=== PATIENT | female | born 1955 | race Caucasian/White ===

== ENCOUNTER 2016-06-28 17:27 | Emergency (ER) | payer SELFPAY ==
[~2016-06-28] VITALS: Wt 64.0 kg
[2016-06-29] MEDS ORDERED: SOD CHLORIDE 0.9% 1,000 ML IV STA (01:28)
[2016-06-29] MEDS ORDERED: LORAZEPAM 2 MG INJ IV ONE (01:30)
[2016-06-29] MEDS: ONDANSETRON 4 MG INJ IV STA ×2 (01:43→01:51)
[2016-06-29 01:56] LABS: ADD SCAN DIFF NO
[2016-06-29 01:58] LABS: BASOPHILS % 0.7 % (0.0-2.0); EOSINOPHILS % 0.3 % (0.0-7.0); HEMATOCRIT 45.7 % (37.0-47.0); HEMOGLOBIN 15.3 g/dl (12.0-16.0); LYMPHOCYTES # 1.8 10^3/ul (0.8-2.9); LYMPHOCYTES % 31.5 % (15.0-51.0); MEAN CORPUSCULAR HEMOGLOBIN 29.6 pg (29.0-33.0); MEAN CORPUSCULAR HGB CONC 33.5 g/dl (32.0-37.0); MEAN CORPUSCULAR VOLUME 88.4 fl (82.0-101.0); MEAN PLATELET VOLUME 9.9 fl (7.4-10.4); MONOCYTE # 0.6 10^3/ul (0.3-0.9); MONOCYTES % 9.6 % (0.0-11.0); NEUTROPHIL # 3.3 10^3/ul (1.6-7.5); NEUTROPHILS % 57.7 % (39.0-77.0); PLATELET COUNT 285 10^3/UL (140-415); RED BLOOD COUNT 5.17 10^6/ul (4.20-5.40); RED CELL DISTRIBUTION WIDTH 13.1 % (11.5-14.5); WHITE BLOOD COUNT 5.8 10^3/ul (4.8-10.8)
[2016-06-29] MEDS ORDERED: DILTIAZEM 25 MG INJ IV ONE (02:00)
[2016-06-29 02:08] LABS: ALBUMIN 4.5 g/dl (3.3-4.9)
[2016-06-29 02:09] LABS: POTASSIUM 4.1 mmol/L (3.5-5.1)
[2016-06-29 02:11] LABS: ALBUMIN/GLOBULIN RATIO 1.12; BILIRUBIN,INDIRECT 0.4 mg/dl (0-1.1); BILIRUBIN,TOTAL 0.4 mg/dl (0.2-1.3); CREATININE 0.76 mg/dl (0.44-1.00); TOTAL PROTEIN 8.5 g/dl (6.1-8.1)
[2016-06-29 02:12] LABS: CALCIUM 10.1 mg/dl (8.4-10.2)
[2016-06-29 02:23] LABS: TROPONIN-I 0.085 ng/ml (0.00-0.12)
[2016-06-29 02:45] VITALS: BP 102/71; PULSE 70; RESP 20; TEMP 98.2
--- NOTE | 2016-06-29 03:13 | RADRPT ---
PROCEDURE: XR Chest. CLINICAL INDICATION: Clinical presentation of pulmonary infiltrate. TECHNIQUE: Single frontal view of the chest was obtained COMPARISON: None FINDINGS: Cardiomegaly with atherosclerotic calcifications in the thoracic aorta. There is no pleural effusion or pneumothorax. IMPRESSION: No acute disease. RPTAT: [facility] Physician Gopi Date Time Electronically viewed and signed by Boby Villanueva Physician on 06/29/2016 03:12 RS/
--- NOTE | 2016-06-29 05:35 | ERD ---
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 CRUZ WITH NO NEURO HPI 61-year-old woman complains of palpitations 3 days and generalized dizziness although denies loss of consciousness. She denies chest pain and states she stopped using about 2 different "heart medications" about 2-3 months ago. She states she does have a history of "palpitations"'s but is unsure if she has had atrial fibrillation or flutter. Patient denies dysuria, no fevers or chills, no cough, no headache or blurry vision, no vomiting or diarrhea. ROS All systems reviewed and are negative except as per history of present illness. PMhx/Soc Hypertension Medical and Surgical Hx: pt denies Surgical Hx History of Surgery: No Anesthesia Reaction: No Hx Neurological Disorder: No Hx Respiratory Disorders: No Hx Cardiac Disorders: Yes (HLD) Hx Psychiatric Problems: No Hx Miscellaneous Medical Probl: No Hx Alcohol Use: No Hx Substance Use: No Hx Tobacco Use: No Smoking Status: Never smoker FmHx Family History: No diabetes Physical Exam Vitals Vital Signs Date Time Temp Pulse Resp B/P Pulse Ox O2 Delivery O2 Flow Rate FiO2 06/29/16 02:45 98.2 70 20 102/71 100 Room Air 06/29/16 01:22 98.0 115 20 114/78 99 Room Air 06/28/16 17:51 98.1 82 21 106/52 98 Physical Exam GENERAL: Well-developed, well-nourished, well-hydrated, in no apparent distress , looks nontoxic in appearance HEENT: Moist mucous membranes, pink conjunctiva, no cervical spine tenderness or step-off deformities, no goiter, no jaundice or icterus, extraocular movements intact without pain. No submandibular induration, and no pharyngeal erythema NEURO: Alert and oriented 3, cranial nerves II through XII intact bilaterally, pupils equal round reactive to light, no focal deficits or facial asymmetry, sensation intact distally Strength 5/5 in upper and lower extremities bilaterally CARDIAC: Tachycardic and regular, no murmurs rubs or gallops LUNGS: Clear bilaterally no wheezing crackles or stridor ABDOMEN: Soft nontender, no guarding, no rigidity, no rebound, no psoas sign no obturator sign. Normoactive bowel sounds SKIN: Warm and dry to touch, no abrasions, contusions, or hematomas, no lacerations, no ecchymosis, no target lesions, and without ulcers EXTREMITIES: No clubbing cyanosis or edema, calves are bilaterally symmetrical, no Homans sign, no popliteal cord sign. Distal pulses equal and bilateral PSYCH: Normal affect without agitation or irritability Result Diagram: 06/29/1614406/29/165 Results 24 hrs Laboratory Tests Test 06/29/16 01:45 Alanine Aminotransferase (ALT/SGPT) 26IU/L Albumin 4.5g/dl Albumin/Globulin Ratio 1.12 Alkaline Phosphatase 97IU/L Anion Gap 18 Aspartate Amino Transf (AST/SGOT) 31IU/L Basophils # 0.010^3/ul Basophils % 0.7% Blood Urea Nitrogen 25mg/dl Calcium Level 10.1mg/dl Carbon Dioxide Level 25mmol/L Chloride Level 104mmol/L Creatinine 0.76mg/dl Direct Bilirubin 0.00mg/dl Eosinophils # 0.010^3/ul Eosinophils % 0.3% Globulin 4.00g/dl Glucose Level 113mg/dl Hematocrit 45.7% Hemoglobin 15.3g/dl Indirect Bilirubin 0.4mg/dl Lipase 146U/L Lymphocytes # 1.810^3/ul Lymphocytes % 31.5% Mean Corpuscular Hemoglobin 29.6pg Mean Corpuscular Hemoglobin Concent 33.5g/dl Mean Corpuscular Volume 88.4fl Mean Platelet Volume 9.9fl Monocytes # 0.610^3/ul Monocytes % 9.6% Neutrophils # 3.310^3/ul Neutrophils % 57.7% Nucleated Red Blood Cells # 0.010^3/ul Nucleated Red Blood Cells % 0.0/100WBC Platelet Count 27682^3/UL Potassium Level 4.1mmol/L Red Blood Count 5.1710^6/ul Red Cell Distribution Width 13.1% Sodium Level 143mmol/L Total Bilirubin 0.4mg/dl Total Protein 8.5g/dl Troponin I 0.085ng/ml White Blood Count 5.810^3/ul Current Medications Medications (Trade) Dose Ordered Sig/Erik Route PRN Reason Start Time Stop Time Status Last Admin Dose Admin Sodium Chloride (NS) 1,000 ml @ 1,000 mls/hr Q1H STAT IV 06/29/16 01:28 06/29/16 02:27 DC 06/29/16 01:43 Ondansetron HCl (Zofran Inj) 4 mg ONCE STAT IV 06/29/16 01:28 06/29/16 01:29 DC 06/29/16 01:51 Lorazepam (Ativan) 0.5 mg ONCE ONCE IV 06/29/16 01:30 06/29/16 01:42 DC Diltiazem HCl (Cardizem Iv) 20 mg ONCE ONCE IV 06/29/16 02:00 06/29/16 02:01 DC 06/29/16 01:49 Procedures/MDM IV line was established patient was placed on principal cyber engineer rhythm strip revealed a irregular tachycardia at 110 bpm. Patient was afebrile. I administered 1 L normal saline intravenously. Patient also received Zofran 4 mg IV. EKG #1 was performed, read by me revealed an atrial flutter with a variable AV block and rapid ventricular rate at 108 bpm, normal axis, narrow QRS complex, no concerning ST elevations or T-wave inversions. I administered diltiazem 10 mg IV with resolution of her palpitations. EKG #2 was performed, read by me revealed a normal sinus rhythm at 79 bpm, normal axis, with a left ventricular conduction delay and a QRS duration of 106 ms, no concerning ST elevations or depressions noted. One AP view of the chest performed, read by me reveals no acute infiltrates, normal mediastinum, sharp costophrenic and cardiac borders, no air under the diaphragm. Otherwise unremarkable chest x-ray. CBC and electrolytes are normal, liver function tests are normal, troponin was negative. Critical Care: Time: 50 minutes, this was time separate from other procedures. Treatments/Evaluations: Close monitoring and treatment of unstable vital signs, cardiorespiratory, and neurologic status, while maintaining tight balance of fluid, respiratory, and cardiac interventions. Differential diagnoses considered, included but not limited to acute coronary syndrome, pulmonary embolism, aortic dissection, abdominal aortic aneurysm, sepsis, stroke, meningitis, encephalitis, pneumonia, appendicitis, cholecystitis , bowel obstruction, pyelonephritis, nephrolithiasis, cystitis, as well as metabolic, hematologic, and electrolyte abnormalities. As well as abscess, cellulitis, fractures, and dislocations. Patient feels much better at this time, and vital signs are normal, symptoms have improved. I did give strict instructions to return to the ED if symptoms continue or worsen, patient will otherwise follow-up with primary care physician. Patient understood instructions and agreed to plan. Departure Diagnosis: Primary Impression: Atrial flutter Atrial flutter type: typical Qualified Code: I48.3 - Typical atrial flutter Additional Impression: Dizziness Condition: Good Patient Instructions: Atrial Flutter, Dizziness, Unk Cause GOMEZ DAVIS MD Jun 29, 2016 05:35
== END 2016-06-29 03:06 | disposition home or self-care (01) ==
LOC: E/R 17:27
DX: I48.3 Typical atrial flutter (principal); R42 Dizziness and giddiness; I10 Essential (primary) hypertension
CPT/HCPCS: 36415; 71010; 80053; 83690; 84484; 85025; 93005; 96374; 96375; 99291; J2060; J2405; J7030

== ENCOUNTER 2018-04-26 11:03 | Inpatient (IN) | payer MEDICAID ==
[~2018-04-26] VITALS: Ht 165.1 cm; Wt 64.0 kg
[2018-04-26] MEDS ORDERED: ASPIRIN 81 MG TAB PO STA (12:58)
[2018-04-26] MEDS ORDERED: SOD CHLORIDE 0.9% 1,000 ML IV STA (12:58)
[2018-04-26] MEDS ORDERED: DILTIAZEM 25 MG INJ IV ONE (13:00)
--- NOTE | 2018-04-26 13:36 | ERD ---
ER Documentation Chief Complaint Chief Complaint ap x 3 days HPI 63-year-old female presenting with several days of palpitations, chest pain with pressure, shortness of breath, and feeling of bloating in her abdomen. She denies any associated fever, chills, vomiting, diarrhea, constipation. She does state that she has generalized fatigue. She was on medications previously but she is not sure what they were for or the name of her medications. She was under the care of physicians at [facility], but her Medi-Silvio was canceled and she has not received medical follow-up since. ROS All systems reviewed and are negative except as per history of present illness. Medications Home Meds No Active Prescriptions or Reported Meds Allergies Allergies: Uncoded Allergies: PENICILLIN (Allergy, Intermediate, rash, 04/26/18) PMhx/Soc History of Surgery: No Anesthesia Reaction: No Hx Neurological Disorder: No Hx Respiratory Disorders: No Hx Cardiac Disorders: Yes (HLD, a flutter) Hx Psychiatric Problems: No Hx Miscellaneous Medical Probl: No Hx Alcohol Use: No Hx Substance Use: No Hx Tobacco Use: No Smoking Status: Never smoker FmHx Hypertension Family History: No diabetes Physical Exam Vitals Vital Signs Date Temp Pulse Resp B/P (MAP) Pulse Ox O2 O2 Flow FiO2 Time Delivery Rate 04/26/18 98.2 82 20 129/88 97 Room Air 14:32 (102) 04/26/18 98.5 95 18 138/92 99 11:10 (107) Physical Exam Const: No acute distress Head: Atraumatic Eyes: Normal Conjunctiva ENT: Normal External Ears, Nose and Mouth. Neck: Full range of motion. No meningismus. Resp: Clear to auscultation bilaterally Cardio: Irregularly irregular rhythm, tachycardic, no murmurs. 2+ distal pulses in all 4 extremities Abd: Soft, non tender, non distended. Normal bowel sounds Skin: No petechiae or rashes Back: No midline or flank tenderness Ext: No cyanosis, or edema Neur: Awake and alert, normal speech, no facial asymmetry, moving all extremities Psych: Normal Mood and Affect Result Diagram: 04/26/18 1305 04/26/18 1305 Results 24 hrs Laboratory Tests Test 04/26/18 12:55 04/26/18 13:05 Urine Color YELLOW Urine Clarity SLIGHTLY CLOUDY Urine pH 6.0 Urine Specific [place] 1.019 Urine Ketones NEGATIVE mg/dL Urine Nitrite NEGATIVE mg/dL Urine Bilirubin NEGATIVE mg/dL Urine Urobilinogen NEGATIVE mg/dL Urine Leukocyte Esterase NEGATIVE [facility]/ul Urine Microscopic RBC 0 /HPF Urine Microscopic WBC 2 /HPF Urine Mucus FEW /HPF Urine Hemoglobin 1+ mg/dL Urine Glucose NEGATIVE mg/dL Urine Total Protein NEGATIVE mg/dl White Blood Count 5.7 10^3/ul Red Blood Count 4.98 10^6/ul Hemoglobin 14.8 g/dl Hematocrit 43.9 % Mean Corpuscular Volume 88.2 fl Mean Corpuscular Hemoglobin 29.7 pg Mean Corpuscular Hemoglobin Concent 33.7 g/dl Red Cell Distribution Width 13.0 % Platelet Count 234 10^3/UL Mean Platelet Volume 10.5 fl Immature Granulocytes % 0.300 % Neutrophils % 61.5 % Lymphocytes % 26.2 % Monocytes % 10.6 % Eosinophils % 0.5 % Basophils % 0.9 % Nucleated Red Blood Cells % 0.0 /100WBC Immature Granulocytes # 0.020 10^3/ul Neutrophils # 3.5 10^3/ul Lymphocytes # 1.5 10^3/ul Monocytes # 0.6 10^3/ul Eosinophils # 0.0 10^3/ul Basophils # 0.1 10^3/ul Nucleated Red Blood Cells # 0.0 10^3/ul Prothrombin Time 12.8 Sec Prothrombin Time Ratio 1.0 INR International Normalized Ratio 0.95 Activated Partial Thromboplast Time 26.4 Sec Sodium Level 140 mmol/L Potassium Level 4.4 mmol/L Chloride Level 106 mmol/L Carbon Dioxide Level 26 mmol/L Anion Gap 8 Blood Urea Nitrogen 16 mg/dl Creatinine 0.61 mg/dl Est Glomerular Filtrat Rate mL/min > 60 mL/min Glucose Level 109 mg/dl Hemoglobin A1c 5.5 % Calcium Level 9.9 mg/dl Total Bilirubin 0.4 mg/dl Direct Bilirubin 0.00 mg/dl Indirect Bilirubin 0.4 mg/dl Aspartate Amino Transf (AST/SGOT) 36 IU/L Alanine Aminotransferase (ALT/SGPT) 27 IU/L Alkaline Phosphatase 80 IU/L Troponin I 0.035 ng/ml Total Protein 8.2 g/dl Albumin 4.6 g/dl Globulin 3.60 g/dl Albumin/Globulin Ratio 1.27 Lipase 155 U/L Current Medications Medications Dose Sig/Erik Start Time Status Last (Trade) Ordered Route PRN Stop Time Admin Dose Reason Admin Sodium 1,000 ml @ Q1H STAT 04/26/18 DC 04/26/18 Chloride 1,000 mls/hr IV 12:58 13:15 04/26/18 13:57 Aspirin 162 mg ONCE STAT 04/26/18 DC 04/26/18 (Aspirin) PO 12:58 13:15 04/26/18 13:00 Diltiazem 20 mg ONCE ONCE 04/26/18 DC 04/26/18 HCl IV 13:00 13:22 (Cardizem Iv) 04/26/18 13:01 Simethicone 160 mg ONCE ONCE 04/26/18 DC 04/26/18 (Mylicon) PO 14:00 13:46 04/26/18 14:01 Famotidine 20 mg ONCE ONCE 04/26/18 DC 04/26/18 (Pepcid) PO 14:00 13:43 04/26/18 14:01 Procedures/MDM EMERGENT LABS AND DIAGNOSTIC STUDIES: Lab Results above were reviewed and interpreted by me. CBC: no anemia or evidence of infection CMP: No evidence of electrolyte abnormality, renal failure, hypoglycemia, liver failure, or biliary obstruction Troponin within normal limits, not indicative of cardiac ischemia UA: no evidence of infection 12-lead EKG #1 was interpreted by Nakul Pabon MD: Atrial flutter with variable AV block at 90 bpm. Normal axis Normal intervals No acute ST or T wave changes suggestive of acute ischemia or STEMI. 12-lead EKG #2 was interpreted by Nakul Pabon MD: Atrial flutter with variable AV block at 64 bpm. Normal axis Normal intervals No acute ST or T wave changes suggestive of acute ischemia or STEMI. Radiology Results as interpreted by Radiology below were reviewed by Kaye Pabon MD: Chest x-ray: IMPRESSION: No acute disease. Calcified aorta consistent with atherosclerotic disease. Initial Nursing notes reviewed. Previous Medical Records requested via the Electronic Health Record. EMERGENCY DEPARTMENT COURSE / MEDICAL DECISION MAKING: Patient was initially placed on a monitor and treated with IV fluids and IV diltiazem for a flutter with rapid ventricular response. She was also given aspirin. At bedside the patient's heart rate would fluctuate between 100 - 130. EKG did not show any significant ischemic changes. After the diltiazem, her rate did improve but she was still in A. Flutter. Patient does not have outpatient follow-up as she does not have insurance at this time. We were able to get her set up with a emergency Medi-Silvio. As she does not have good follow- up, I feel she needs admission for further workup, stabilization, and initiation of medications to control her a flutter. Accepting Care Team: Current data and ongoing care discussed. Time: Time of admission Primary Provider: Dr. Kenrick Mathews Diagnosis: Primary Impression: Atrial flutter with rapid ventricular response Condition: CHAPIS Lofton MD Apr 26, 2018 13:36
[2018-04-26] MEDS ORDERED: FAMOTIDINE 20 MG TAB PO ONE (14:00)
[2018-04-26] MEDS ORDERED: HYDROCODONE/APAP (5/325) TAB PO PRN (15:30)
[2018-04-26] MEDS ORDERED: ACETAMINOPHEN 325 MG TAB PO PRN ×2 (15:30)
[2018-04-26] MEDS ORDERED: ONDANSETRON 4 MG INJ IV PRN ×2 (15:30)
[2018-04-26] MEDS ORDERED: DOCUSATE SODIUM 100 MG CAP PO PRN (15:30)
[2018-04-26] MEDS ORDERED: MAGNESIUM HYDROXIDE 30ML CUP PO PRN (15:30)
[2018-04-26] MEDS ORDERED: NITROGLYCERIN (SL) 0.4 MG TAB SL PRN (15:30)
[2018-04-26] MEDS ORDERED: NACL 0.9% 3 ML SYG IV SCH (15:30)
--- NOTE | 2018-04-26 15:35 | HP ---
Date/Time of Note Date/Time of Note DATE: 04/26/18 TIME: 15:35 Assessment/Plan VTE Prophylaxis SCD applied (from Nsg): Yes Pharmacological prophylaxis: LMWH Lines/Catheters IV Catheter Type (from Nrsg): Saline Lock Assessment/Plan Assessment/Plan 1. Atrial fibrillation/flutter with RVR - given Cardizem 10mg in ED which helped control rate but still in afib. Will start Cardizem drip and monitor for improvement in HR - Cardiology consultation placed for further recommendations - Will check ECHO to assess for any structural abnormalities - Lovenox full dose on board and will need to transition to NOAC and check with cost for coverage - TSH within normal limits - electrolytes within normal limits 2. Diet - Cardiac 3. Code status - Full code 4. DVT ppx - LMWH 5. Gi ppx - PPI 6. Disposition - Admit to telemetry for treatment of afib with RVR and Cardiology evaluation Result Diagram: 04/26/18 1305 04/26/18 1305 Results 24hrs Laboratory Tests Test 04/26/18 12:55 04/26/18 13:05 Urine Color YELLOW Urine Clarity SLIGHTLY CLOUDY A Urine pH 6.0 Urine Specific [place] 1.019 Urine Ketones NEGATIVE Urine Nitrite NEGATIVE Urine Bilirubin NEGATIVE Urine Urobilinogen NEGATIVE Urine Leukocyte Esterase NEGATIVE Urine Microscopic RBC 0 Urine Microscopic WBC 2 Urine Mucus FEW A Urine Hemoglobin 1+ H Urine Glucose NEGATIVE Urine Total Protein NEGATIVE White Blood Count 5.7 Red Blood Count 4.98 Hemoglobin 14.8 Hematocrit 43.9 Mean Corpuscular Volume 88.2 Mean Corpuscular Hemoglobin 29.7 Mean Corpuscular Hemoglobin Concent 33.7 Red Cell Distribution Width 13.0 Platelet Count 234 Mean Platelet Volume 10.5 H Immature Granulocytes % 0.300 Neutrophils % 61.5 Lymphocytes % 26.2 Monocytes % 10.6 Eosinophils % 0.5 Basophils % 0.9 Nucleated Red Blood Cells % 0.0 Immature Granulocytes # 0.020 Neutrophils # 3.5 Lymphocytes # 1.5 Monocytes # 0.6 Eosinophils # 0.0 Basophils # 0.1 Nucleated Red Blood Cells # 0.0 Prothrombin Time 12.8 Prothrombin Time Ratio 1.0 INR International Normalized Ratio 0.95 Activated Partial Thromboplast Time 26.4 Sodium Level 140 Potassium Level 4.4 Chloride Level 106 Carbon Dioxide Level 26 Anion Gap 8 Blood Urea Nitrogen 16 Creatinine 0.61 Est Glomerular Filtrat Rate mL/min > 60 Glucose Level 109 Calcium Level 9.9 Total Bilirubin 0.4 Direct Bilirubin 0.00 Indirect Bilirubin 0.4 Aspartate Amino Transf (AST/SGOT) 36 Alanine Aminotransferase (ALT/SGPT) 27 Alkaline Phosphatase 80 Troponin I 0.035 Total Protein 8.2 H Albumin 4.6 Globulin 3.60 H Albumin/Globulin Ratio 1.27 Lipase 155 HPI/ROS Admit Date/Time Admit Date/Time 04/26/18 at 1500 Hx of Present Illness 63 yo F with PMH of arrhythmias presented to ED with generalized weakness, shortness of breath, palpitations with sharp left sided chest pain, and a bdominal discomfort. patient sates that over the past 3 days she has been experiencing worsening of these symptoms but has been feeling there on and off over the past few months. She has associated nausea, vomiting, and dizziness. Patient states she has been treated in the past for arrhythmia and was on aspirin 81, metoprolol, and simvastatin but lost her insurance and has been a while since seen her PCP or taken any medications. She was seeing a Operations Label Clerk but forgets his name. Only remembers he was in a tall building in [place]. In the ED, patient was found with atrial arrhythmia and given Cardizem in the ED with improvement in heart rate. Patient denies any LOC, wheezing, constipation, diarrhea, or urinary issues. ROS All 12 systems reviewed and pertinent positives as per HPI. All others negative. Constitutional: fatigue, nausea; No chills Eyes: No discharge ENT: No congestion Respiratory: shortness of breath; No cough, No sputum, No wheezing Cardiovascular: chest pain, lightheadedness, palpitations Gastrointestinal: pain, nausea, vomiting; No constipation, No diarrhea Genitourinary: no complaints Musculoskeletal: no complaints Skin: No laceration, No rash Neurologic: dizziness, headache; No confusion, No focal-weakness, No syncope, No seizure Endocrine: no complaints Lymphatic: no complaints Psychological: nl mood/affect Immunologic: no complaints PMH/Family/Social Past Medical History Medical History: other (arrhythmia) Medications Current Medications Ondansetron HCl (Zofran Inj) 4 mg ER BRIDGE PRN IV NAUSEA AND/OR VOMITING; Start 04/26/18 at 15:30; Stop 04/27/18 at 15:29 Acetaminophen (Tylenol Tab) 650 mg ER BRIDGE PRN PO MILD PAIN(1-3)OR ELEVATED TEMP; Start 04/26/18 at 15:30; Stop 04/27/18 at 15:29 IV Flush (NS 3 ml) 3 ml PER PROTOCOL IV ; Start 04/26/18 at 15:30; Status UNV Ondansetron HCl (Zofran Inj) 4 mg Q6H PRN IV NAUSEA AND/OR VOMITING; Start 04/26/18 at 15:30; Status UNV Nitroglycerin (Nitroglycerin (Sl Tab) 0.4 Mg) 1 tab Q5M PRN SL CHEST PAIN; Start 04/26/18 at 15:30; Status UNV Acetaminophen (Tylenol Tab) 650 mg Q6H PRN PO PAIN LEVEL 1-3 OR FEVER; Start 04/26/18 at 15:30; Status UNV Acetaminophen/ Hydrocodone Bitart ([place] (5/325)) 1 tab Q6H PRN PO PAIN LEVEL 4-6; Start 04/26/18 at 15:30; Status UNV Docusate Sodium (Colace) 100 mg Q12H PRN PO CONSTIPATION; Start 04/26/18 at 15:30; Status UNV Magnesium Hydroxide (Milk Of Mag) 30 ml DAILY PRN PO CONSTIPATION; Start 04/26/18 at 15:30; Status UNV Pantoprazole (Protonix Tab) 40 mg DAILY@06 PO ; Start 04/27/18 at 06:00; Status UNV Enoxaparin Sodium (Lovenox) 65 mg Q12 SC ; Start 04/26/18 at 16:00; Status UNV Uncoded Allergies: PENICILLIN (Allergy, Intermediate, rash, 04/26/18) Past Surgical History Past Surgical Hx: no surgical history Family History Significant Family History: hypertension Social History Alcohol Use: none Smoking Status: Never smoker Drug Use: none Exam/Review of Systems Vital Signs Vitals Vital Signs Date Temp Pulse Resp B/P (MAP) Pulse Ox O2 O2 Flow FiO2 Time Delivery Rate 04/26/18 98.2 82 20 129/88 97 Room Air 14:32 (102) Exam Exam General: Patient is currently lying in bed, no acute distress, fatigued, answering questions appropriately HEENT: Atraumatic, normocephalic. The pupils are equal, round and reactive. Extraocular motor are intact Neck: Supple with full range of motion. No rigidity or meningismus Chest: Nontender Lungs: Clear to auscultation bilaterally no crackles rales or wheezing Heart: Normal S1-S2, irregular rhythm and normal rate. No murmur, S3, or S4 Abdomen: Soft , nontender, nondistended , bowel sounds are present. No guarding no rebound tenderness , No masses or organomegaly. No costovertebral temporal angle mass Extremities: Normal to inspection, no edema no cyanosis Neurologic: Normal mental status, speech normal, cranial nerves II through XII are intact, motor and sensory are intact, strength 5 out of 5 in bilateral upper and lower extremities., No focal neurological deficits noted. Additional Comments No Home Medications PROCEDURE: XR Chest. CLINICAL INDICATION: Chest pain TECHNIQUE: Single frontal view of the chest was obtained. COMPARISON: 06/19/2016 FINDINGS: The heart is within normal limits. The thoracic aorta is calcified. The lungs are clear. There is no pleural effusion or pneumothorax. RPTAT: AA IMPRESSION: No acute disease. Calcified aorta consistent with atherosclerotic disease. .Misbah Li MD, MD Date Time Electronically viewed and signed by .Misbah Li MD, MD on 04/26/2018 14:16 YOVANNY LUJAN MD Apr 26, 2018 15:35
[2018-04-26] MEDS ORDERED: ENOXAPARIN 100 MG/ML SYG SC SCH (16:00)
[2018-04-26 16:58] VITALS: PULSE 80
--- NOTE | 2018-04-26 17:42 | CONS ---
Date/Time of Note Date/Time of Note DATE: 04/26/18 TIME: 17:36 Assessment/Plan Assessment/Plan Hospital Course Paroxysmal atrial flutter: CHADSVASC is 0 unless she has underlying cardiomyopathy so no anticoagulation for now. retirement plan should be atrial flutter ablation once she establishes insurance. In the meantime, rate control is appropriate -start diltiazem 120mg CD -d/c lovenox. If has underlying cardiomyopathy, can start oral anticoagulation Result Diagram: 04/26/18 1305 04/26/18 1305 Results 24hrs Laboratory Tests Test 04/26/18 12:55 04/26/18 13:05 Urine Color YELLOW Urine Clarity SLIGHTLY CLOUDY A Urine pH 6.0 Urine Specific [place] 1.019 Urine Ketones NEGATIVE Urine Nitrite NEGATIVE Urine Bilirubin NEGATIVE Urine Urobilinogen NEGATIVE Urine Leukocyte Esterase NEGATIVE Urine Microscopic RBC 0 Urine Microscopic WBC 2 Urine Mucus FEW A Urine Hemoglobin 1+ H Urine Glucose NEGATIVE Urine Total Protein NEGATIVE White Blood Count 5.7 Red Blood Count 4.98 Hemoglobin 14.8 Hematocrit 43.9 Mean Corpuscular Volume 88.2 Mean Corpuscular Hemoglobin 29.7 Mean Corpuscular Hemoglobin Concent 33.7 Red Cell Distribution Width 13.0 Platelet Count 234 Mean Platelet Volume 10.5 H Immature Granulocytes % 0.300 Neutrophils % 61.5 Lymphocytes % 26.2 Monocytes % 10.6 Eosinophils % 0.5 Basophils % 0.9 Nucleated Red Blood Cells % 0.0 Immature Granulocytes # 0.020 Neutrophils # 3.5 Lymphocytes # 1.5 Monocytes # 0.6 Eosinophils # 0.0 Basophils # 0.1 Nucleated Red Blood Cells # 0.0 Prothrombin Time 12.8 Prothrombin Time Ratio 1.0 INR International Normalized Ratio 0.95 Activated Partial Thromboplast Time 26.4 Sodium Level 140 Potassium Level 4.4 Chloride Level 106 Carbon Dioxide Level 26 Anion Gap 8 Blood Urea Nitrogen 16 Creatinine 0.61 Est Glomerular Filtrat Rate mL/min > 60 Glucose Level 109 Hemoglobin A1c 5.5 Calcium Level 9.9 Total Bilirubin 0.4 Direct Bilirubin 0.00 Indirect Bilirubin 0.4 Aspartate Amino Transf (AST/SGOT) 36 Alanine Aminotransferase (ALT/SGPT) 27 Alkaline Phosphatase 80 Troponin I 0.035 Total Protein 8.2 H Albumin 4.6 Globulin 3.60 H Albumin/Globulin Ratio 1.27 Lipase 155 Thyroid Stimulating Hormone (TSH) 2.180 Consultation Date/Type/Reason Admit Date/Time Date of Consultation: Apr 26, 2018 Type of Consult Cardiology Reason for Consultation Atrial flutter Requesting Provider: YOVANNY LUJAN MD Hx of Present Illness 63 yo F with a h/o paroxysmal atrial flutter who was admitted after presenting with palpitations and found to have atrial flutter with rapid rates at times. Her sister notes that the pt has been feeling very weak and has dyspnea at times. This has been ongoing for a while but specifically the last 3 days. The pt notes that she has had a heart arrhythmia since the early but she does not know the name. She used to take metoprolol and was followed at [facility] but she lost her [employer] and now does not have insurance. Currently no symptoms. No orthopnea, PND, edema. Of note she was seen in the ER 2016 and found to have atrial fluter but has conversion to sinus and was discharged from the ED. per hPI Past Medical History per hPI Medications Current Medications IV Flush (NS 3 ml) 3 ml PER PROTOCOL IV ; Start 04/26/18 at 15:30 Ondansetron HCl (Zofran Inj) 4 mg Q6H PRN IV NAUSEA AND/OR VOMITING; Start 04/26/18 at 15:30 Nitroglycerin (Nitroglycerin (Sl Tab) 0.4 Mg) 1 tab Q5M PRN SL CHEST PAIN; Start 04/26/18 at 15:30 Acetaminophen (Tylenol Tab) 650 mg Q6H PRN PO PAIN LEVEL 1-3 OR FEVER; Start 04/26/18 at 15:30 Acetaminophen/ Hydrocodone Bitart ([place] (5/325)) 1 tab Q6H PRN PO PAIN LEVEL 4-6; Start 04/26/18 at 15:30 Docusate Sodium (Colace) 100 mg Q12H PRN PO CONSTIPATION; Start 04/26/18 at 15:30 Magnesium Hydroxide (Milk Of Mag) 30 ml DAILY PRN PO CONSTIPATION; Start 04/26/18 at 15:30 Pantoprazole (Protonix Tab) 40 mg DAILY@06 PO ; Start 04/27/18 at 06:00 Enoxaparin Sodium (Lovenox) 65 mg Q12H SC ; Start 04/26/18 at 16:00 Influenza Virus Vaccine Quadrival (Fluzone) 0.5 ml ONCE ONCE IM* ; Start 04/27/18 at 12:00; Stop 04/27/18 at 12:01 Allergies: Uncoded Allergies: PENICILLIN (Allergy, Intermediate, rash, 04/26/18) Social History Smoking Status: Never smoker Exam/Review of Systems Vital Signs Vitals Vital Signs Date Temp Pulse Resp B/P (MAP) Pulse Ox O2 O2 Flow FiO2 Time Delivery Rate 04/26/18 80 16:58 04/26/18 27 125/82 99 16:05 (96) 04/26/18 98.2 Room Air 14:32 Exam Constitutional: alert, oriented Psych: no complaints, nl mood/affect Head: normocephalic, atraumatic Neck: supple; No jvd Respiratory: clear to auscultation; No crackles/rales Cardiovascular: No regular rate and rhythm (IRIR), No edema, No systolic murmur Gastrointestinal: soft, non-tender; No distended Neurological: nl mental status, nl speech Medications Medications Current Medications IV Flush (NS 3 ml) 3 ml PER PROTOCOL IV ; Start 04/26/18 at 15:30 Ondansetron HCl (Zofran Inj) 4 mg Q6H PRN IV NAUSEA AND/OR VOMITING; Start 04/26/18 at 15:30 Nitroglycerin (Nitroglycerin (Sl Tab) 0.4 Mg) 1 tab Q5M PRN SL CHEST PAIN; Start 04/26/18 at 15:30 Acetaminophen (Tylenol Tab) 650 mg Q6H PRN PO PAIN LEVEL 1-3 OR FEVER; Start 04/26/18 at 15:30 Acetaminophen/ Hydrocodone Bitart ([place] (5/325)) 1 tab Q6H PRN PO PAIN LEVEL 4-6; Start 04/26/18 at 15:30 Docusate Sodium (Colace) 100 mg Q12H PRN PO CONSTIPATION; Start 04/26/18 at 15:30 Magnesium Hydroxide (Milk Of Mag) 30 ml DAILY PRN PO CONSTIPATION; Start 04/26/18 at 15:30 Pantoprazole (Protonix Tab) 40 mg DAILY@06 PO ; Start 04/27/18 at 06:00 Enoxaparin Sodium (Lovenox) 65 mg Q12H SC ; Start 04/26/18 at 16:00 Influenza Virus Vaccine Quadrival (Fluzone) 0.5 ml ONCE ONCE IM* ; Start 04/27/18 at 12:00; Stop 04/27/18 at 12:01 KIRA ANGEL Apr 26, 2018 17:42
[2018-04-26] MEDS ORDERED: DILTIAZEM (CD) 120 MG CAP PO SCH (18:00)
[2018-04-26] MEDS ORDERED: DILTIAZEM-D5W 125MG/125ML DRIP 125 ML IV SCH (18:30)
[2018-04-26 18:38] VITALS: BP 124/73; PULSE 88
[2018-04-26 20:00] VITALS: BP 130/72; PULSE 86; PULSE 89; RESP 18
[2018-04-26] MEDS ORDERED: METOPROLOL 5 MG INJ IV PRN (21:00)
[2018-04-26] MEDS ORDERED: METOPROLOL 5 MG INJ IV SCH (21:00)
[2018-04-26 23:43] VITALS: BP 128/85; PULSE 87; RESP 20
[2018-04-27] VITALS (10 sets, daily range): BP systolic 96–138; BP diastolic 53–79; PULSE 62–131; RESP 20
[2018-04-27] MEDS: PANTOPRAZOLE (EC) 40 MG TAB PO SCH (05:53)
[2018-04-27] MEDS ORDERED: DILTIAZEM 25 MG INJ IV ONE (08:00)
--- NOTE | 2018-04-27 08:10 | CONS ---
Date/Time of Note Date/Time of Note DATE: 04/27/18 TIME: 08:08 Assessment/Plan Assessment/Plan Hospital Course Paroxysmal atrial flutter: CHADSVASC is 0 unless she has underlying cardiomyopathy so no anticoagulation for now. residential plan should be atrial flutter ablation once she establishes insurance. In the meantime, rate control is appropriate -give IV dilt 10mg now and increase to diltiazem 240 mg CD -hold lovenox. If has underlying cardiomyopathy, can start oral anticoagulation Result Diagram: 04/27/1851104/27/18511 Results 24hrs Laboratory Tests Test 04/26/18 12:55 04/26/18 13:05 04/27/18 05:12 Urine Color YELLOW Urine Clarity SLIGHTLY CLOUDY A Urine pH 6.0 Urine Specific [place] 1.019 Urine Ketones NEGATIVE Urine Nitrite NEGATIVE Urine Bilirubin NEGATIVE Urine Urobilinogen NEGATIVE Urine Leukocyte Esterase NEGATIVE Urine Microscopic RBC 0 Urine Microscopic WBC 2 Urine Mucus FEW A Urine Hemoglobin 1+ H Urine Glucose NEGATIVE Urine Total Protein NEGATIVE White Blood Count 5.7 5.6 Red Blood Count 4.98 4.88 Hemoglobin 14.8 14.5 Hematocrit 43.9 43.8 Mean Corpuscular Volume 88.2 89.8 Mean Corpuscular Hemoglobin 29.7 29.7 Mean Corpuscular 33.7 33.1 Hemoglobin Concent Red Cell Distribution Width 13.0 12.7 Platelet Count 234 238 Mean Platelet Volume 10.5 H 11.1 H Immature Granulocytes % 0.300 0.200 Neutrophils % 61.5 51.1 Lymphocytes % 26.2 36.4 Monocytes % 10.6 10.5 Eosinophils % 0.5 1.1 Basophils % 0.9 0.7 Nucleated Red Blood Cells % 0.0 0.0 Immature Granulocytes # 0.020 0.010 Neutrophils # 3.5 2.8 Lymphocytes # 1.5 2.0 Monocytes # 0.6 0.6 Eosinophils # 0.0 0.1 Basophils # 0.1 0.0 Nucleated Red Blood Cells # 0.0 0.0 Prothrombin Time 12.8 Prothrombin Time Ratio 1.0 INR International 0.95 Normalized Ratio Activated Partial Thromboplast 26.4 Time Sodium Level 140 141 Potassium Level 4.4 4.0 Chloride Level 106 106 Carbon Dioxide Level 26 25 Anion Gap 8 10 Blood Urea Nitrogen 16 13 Creatinine 0.61 0.68 Est Glomerular Filtrat > 60 > 60 Rate mL/min Glucose Level 109 99 Hemoglobin A1c 5.5 Calcium Level 9.9 9.9 Total Bilirubin 0.4 Direct Bilirubin 0.00 Indirect Bilirubin 0.4 Aspartate Amino 36 Transf (AST/SGOT) Alanine 27 Aminotransferase (ALT/SGPT) Alkaline Phosphatase 80 Troponin I 0.035 Total Protein 8.2 H Albumin 4.6 Globulin 3.60 H Albumin/Globulin Ratio 1.27 Lipase 155 Thyroid Stimulating 2.180 Hormone (TSH) Magnesium Level 2.2 Triglycerides Level 155 H Cholesterol Level 268 H LDL Cholesterol, Calculated 209 HDL Cholesterol 28 L Cholesterol/HDL Ratio 9.5 Consultation Date/Type/Reason Admit Date/Time Apr 26, 2018 at 15:22 Initial Consult Date 04/26/18 Type of Consult Cardiology Requesting Provider: YOVANNY LUJNA MD 24 HR Interval Summary Free Text/Dictation HR mostly controlled except for this am. Still with palpitations. LDL 209 Exam/Review of Systems Vital Signs Vitals Vital Signs Date Temp Pulse Resp B/P (MAP) Pulse Ox O2 O2 Flow FiO2 Time Delivery Rate 04/27/18 97.9 98 20 138/73 99 Room Air 06:05 (94) Intake and Output 04/26/18 04/26/18 04/27/18 1515:00 23:00 07:00 IntakeIntake Total 400 ml BalanceBalance 400 ml Exam Constitutional: alert, oriented Head: normocephalic, atraumatic Neck: supple; No jvd Respiratory: clear to auscultation; No crackles/rales Cardiovascular: No regular rate and rhythm (IRIR), No edema Gastrointestinal: soft, non-tender; No distended Neurological: nl mental status, nl speech Medications Medications Current Medications IV Flush (NS 3 ml) 3 ml PER PROTOCOL IV ; Start 04/26/18 at 15:30 Ondansetron HCl (Zofran Inj) 4 mg Q6H PRN IV NAUSEA AND/OR VOMITING; Start 04/26/18 at 15:30 Nitroglycerin (Nitroglycerin (Sl Tab) 0.4 Mg) 1 tab Q5M PRN SL CHEST PAIN; Start 04/26/18 at 15:30 Acetaminophen (Tylenol Tab) 650 mg Q6H PRN PO PAIN LEVEL 1-3 OR FEVER Last administered on 04/26/18at 23:30; Admin Dose 650 MG; Start 04/26/18 at 15:30 Acetaminophen/ Hydrocodone Bitart ([place] (5/325)) 1 tab Q6H PRN PO PAIN LEVEL 4-6; Start 04/26/18 at 15:30 Docusate Sodium (Colace) 100 mg Q12H PRN PO CONSTIPATION; Start 04/26/18 at 15:30 Magnesium Hydroxide (Milk Of Mag) 30 ml DAILY PRN PO CONSTIPATION; Start 04/26/18 at 15:30 Pantoprazole (Protonix Tab) 40 mg DAILY@06 PO Last administered on 04/27/18at 05:53; Admin Dose 40 MG; Start 04/27/18 at 06:00 Influenza Virus Vaccine Quadrival (Fluzone) 0.5 ml ONCE ONCE IM* ; Start 04/27/18 at 12:00; Stop 04/27/18 at 12:01 Metoprolol Tartrate (Lopressor) 2.5 mg Q6 PRN IV ELEVATED BLOOD PRESSURE; Start 04/26/18 at 21:00 Atorvastatin Calcium (Lipitor) 40 mg HS PO ; Start 04/27/18 at 21:00 Diltiazem HCl (Cardizem Cd) 240 mg DAILY PO ; Start 04/27/18 at 09:00 KIRA ANGEL Apr 27, 2018 08:10
--- NOTE | 2018-04-27 08:49 | PN ---
Date/Time of Note Date/Time of Note DATE: 04/27/18 TIME: 08:49 Assessment/Plan VTE Prophylaxis Risk score (from Ns)>0 risk: 2 SCD applied (from Ns): Yes Pharmacological prophylaxis: LMWH Lines/Catheters IV Catheter Type (from [facility]): [place]ine Lock Assessment/Plan Assessment/Plan 1. Atrial fibrillation with RVR - Cardiology on board and appreciate recommendations. Started on PO Cardizem 240mg daily and will monitor HR - Started on Eliquis given findings of hypertrophic CM - ECHO results noted - Discussed with patient need for ablation in future once insurance established 2. Hypertrophic CM 3. Hyperlipidemia - lipid panel results reviewed - Patient started on Lipitor and offered dietary counseling 4. Disposition - Continue monitoring HR and once stable, will d/c home - Starting on Eliquis today and monitor for tolerance. Will need to find out cost since has [employer] emergency insurance at this time Result Diagram: 04/27/18 0512 04/27/18 0512 Results 24hrs Laboratory Tests Test 04/26/18 12:55 04/26/18 13:05 04/27/18 05:12 Urine Color YELLOW Urine Clarity SLIGHTLY CLOUDY A Urine pH 6.0 Urine Specific [place] 1.019 Urine Ketones NEGATIVE Urine Nitrite NEGATIVE Urine Bilirubin NEGATIVE Urine Urobilinogen NEGATIVE Urine Leukocyte Esterase NEGATIVE Urine Microscopic RBC 0 Urine Microscopic WBC 2 Urine Mucus FEW A Urine Hemoglobin 1+ H Urine Glucose NEGATIVE Urine Total Protein NEGATIVE White Blood Count 5.7 5.6 Red Blood Count 4.98 4.88 Hemoglobin 14.8 14.5 Hematocrit 43.9 43.8 Mean Corpuscular Volume 88.2 89.8 Mean Corpuscular Hemoglobin 29.7 29.7 Mean Corpuscular 33.7 33.1 Hemoglobin Concent Red Cell Distribution Width 13.0 12.7 Platelet Count 234 238 Mean Platelet Volume 10.5 H 11.1 H Immature Granulocytes % 0.300 0.200 Neutrophils % 61.5 51.1 Lymphocytes % 26.2 36.4 Monocytes % 10.6 10.5 Eosinophils % 0.5 1.1 Basophils % 0.9 0.7 Nucleated Red Blood Cells % 0.0 0.0 Immature Granulocytes # 0.020 0.010 Neutrophils # 3.5 2.8 Lymphocytes # 1.5 2.0 Monocytes # 0.6 0.6 Eosinophils # 0.0 0.1 Basophils # 0.1 0.0 Nucleated Red Blood Cells # 0.0 0.0 Prothrombin Time 12.8 Prothrombin Time Ratio 1.0 INR International 0.95 Normalized Ratio Activated Partial Thromboplast 26.4 Time Sodium Level 140 141 Potassium Level 4.4 4.0 Chloride Level 106 106 Carbon Dioxide Level 26 25 Anion Gap 8 10 Blood Urea Nitrogen 16 13 Creatinine 0.61 0.68 Est Glomerular Filtrat > 60 > 60 Rate mL/min Glucose Level 109 99 Hemoglobin A1c 5.5 Calcium Level 9.9 9.9 Total Bilirubin 0.4 Direct Bilirubin 0.00 Indirect Bilirubin 0.4 Aspartate Amino 36 Transf (AST/SGOT) Alanine 27 Aminotransferase (ALT/SGPT) Alkaline Phosphatase 80 Troponin I 0.035 Total Protein 8.2 H Albumin 4.6 Globulin 3.60 H Albumin/Globulin Ratio 1.27 Lipase 155 Thyroid Stimulating 2.180 Hormone (TSH) Magnesium Level 2.2 Triglycerides Level 155 H Cholesterol Level 268 H LDL Cholesterol, Calculated 209 HDL Cholesterol 28 L Cholesterol/HDL Ratio 9.5 Subjective 24 Hr Interval Summary Free Text/Dictation Patient doing well and states shes feeling better. She was given a handout about atrial fibrillation and states she was experiencing all the symptoms on the paper. Denies any chest pain, palpitations, shortness of breath, or abdominal discomfort. Exam/Review of Systems Vital Signs Vitals Vital Signs Date Temp Pulse Resp B/P (MAP) Pulse Ox O2 O2 Flow FiO2 Time Delivery Rate 04/27/18 131 08:28 04/27/18 99.5 20 115/79 98 Room Air 08:09 (91) Intake and Output 04/26/18 04/26/18 04/27/18 1515:00 23:00 07:00 IntakeIntake Total 400 ml BalanceBalance 400 ml Exam General: Patient is lying in bed, no acute distress. pleasant and answering questions appropriately Neck: Supple Chest: Nontender Lungs: Clear to auscultation bilaterally no crackles rales or wheezing Heart: Normal S1-S2, irregular rhythm and normal rate. No murmur, S3, or S4 Abdomen: Soft , nontender, nondistended , bowel sounds are present. No guarding no rebound tenderness Extremities: Normal to inspection, no edema no cyanosis Medications Medications Current Medications IV Flush (NS 3 ml) 3 ml PER PROTOCOL IV ; Start 04/26/18 at 15:30 Ondansetron HCl (Zofran Inj) 4 mg Q6H PRN IV NAUSEA AND/OR VOMITING; Start 04/26/18 at 15:30 Nitroglycerin (Nitroglycerin (Sl Tab) 0.4 Mg) 1 tab Q5M PRN SL CHEST PAIN; Start 04/26/18 at 15:30 Acetaminophen (Tylenol Tab) 650 mg Q6H PRN PO PAIN LEVEL 1-3 OR FEVER Last administered on 04/26/18at 23:30; Admin Dose 650 MG; Start 04/26/18 at 15:30 Acetaminophen/ Hydrocodone Bitart ([place] (5/325)) 1 tab Q6H PRN PO PAIN LEVEL 4-6; Start 04/26/18 at 15:30 Docusate Sodium (Colace) 100 mg Q12H PRN PO CONSTIPATION; Start 04/26/18 at 15:30 Magnesium Hydroxide (Milk Of Mag) 30 ml DAILY PRN PO CONSTIPATION; Start 04/26/18 at 15:30 Pantoprazole (Protonix Tab) 40 mg DAILY@06 PO Last administered on 04/27/18at 05:53; Admin Dose 40 MG; Start 04/27/18 at 06:00 Influenza Virus Vaccine Quadrival (Fluzone) 0.5 ml ONCE ONCE IM* ; Start 04/27/18 at 12:00; Stop 04/27/18 at 12:01 Metoprolol Tartrate (Lopressor) 2.5 mg Q6 PRN IV ELEVATED BLOOD PRESSURE; Start 04/26/18 at 21:00 Atorvastatin Calcium (Lipitor) 40 mg HS PO ; Start 04/27/18 at 21:00 Diltiazem HCl (Cardizem Cd) 240 mg DAILY PO ; Start 04/27/18 at 09:00 YOVANNY LUJAN MD Apr 27, 2018 08:49
[2018-04-27] MEDS ORDERED: DILTIAZEM (CD) 120 MG CAP PO SCH (09:00)
--- NOTE | 2018-04-27 09:47 | RADRPT ---
Echocardiogram Report Patient Name: GLORIA ARSHAD Gender: Female Date: 1955 Study Date: 27-Apr-2018 College Counselor: Kalyn Boswell RDCS Location: 619-A Ref. Physician: YOVANNY LUJAN Quality: Adequate Procedures: Transthoracic echocardiogram with complete 2D, M-Mode, and doppler examination. Indications: Atrial Fibrillation. 2D/M Mode Doppler Measurement Value Normal Ranges Measurement Value Normal Ranges LVIDd 2D 2.9 3.5 - 5.6 cm AV Peak [place] 1.5 m/sec LVIDs 2D 1.8 2.1 - 4.1 cm AV Peak PG 8.0 mmHg FS 2D 35.7 % LVOT Peak [place] 0.7 m/sec LVPWd 2D 1.2 0.6 - 1.1 cm LVOT Peak PG 2.0 mmHg IVSd 2D 1.4 0.6 - 1.1 cm IVS/LVPW 2D 1.1 AoR Diam 2D 2.6 2.0 - 3.7 cm LA/Ao 2D 1 0 - 1 EDV 2D 23.4 cm3 ESV 2D 6.2 cm3 LA Dimen 2D 3.7 2.3 - 4.0 cm Findings Left Ventricle: Normal left ventricular systolic function. Normal left ventricular cavity size. Hypertrophic cardiomyopathy with severe asymmetric septal hypertrophy with septum measuring 2.0 cm. No LVOT obstruction. Ejection fraction is visually estimated at 60 %. Right Ventricle: Normal right ventricular size. Normal right ventricular systolic function. Left Atrium: There is severe enlargement of left atrium. Right Atrium: There is severe enlargement of right atrium. Mitral Valve: Normal appearance of the mitral valve. Mild mitral valve regurgitation. Aortic Valve: Normal appearance of the aortic valve. No aortic regurgitation. Tricuspid Valve: Normal appearance of the tricuspid valve. Unable to obtain RVSP due to minimal presence of tricuspid regurgitation. No evidence of tricuspid regurgitation. Pericardium: Normal pericardium with no significant pericardial effusion. Aorta: Normal aortic root. IVC: Normal size and normal respiratory collapse consistent with normal right atrial pressure. Conclusions Normal left ventricular systolic function. Normal left ventricular cavity size. EF 60%. Hypertrophic cardiomyopathy with severe asymmetric septal hypertrophy with septum measuring 2.0 cm. No LVOT obstruction. No significant valvular stenosis or regurgitation seen. There is severe enlargement of left atrium. There is severe enlargement of right atrium. Unable to obtain RVSP due to minimal presence of tricuspid regurgitation. Normal size and normal respiratory collapse consistent with normal right atrial pressure. Electronically Signed By: Osmin Fortune 27-Apr-2018 09:46:53 -0800 Patient Name: GLORIA ARSHAD Study Date: 27-Apr-[id number]
[2018-04-27] MEDS: DILTIAZEM (CD) 240 MG CAP PO SCH (09:50)
[2018-04-27] MEDS ORDERED: APIXABAN 5 MG TABLET PO SCH (14:30)
[2018-04-27] MEDS: APIXABAN 5 MG TABLET PO SCH ×2 (15:56→21:35)
[2018-04-27] MEDS: ATORVASTATIN 40 MG TAB PO SCH (21:36)
[2018-04-28] VITALS (11 sets, daily range): BP systolic 103–129; BP diastolic 52–76; PULSE 39–106; RESP 20
[2018-04-28] MEDS: PANTOPRAZOLE (EC) 40 MG TAB PO SCH (05:48)
[2018-04-28] MEDS: APIXABAN 5 MG TABLET PO SCH ×2 (09:10→20:42)
[2018-04-28] MEDS: DILTIAZEM (CD) 240 MG CAP PO SCH (09:10)
--- NOTE | 2018-04-28 12:16 | CONS ---
Date/Time of Note Date/Time of Note DATE: 04/28/18 TIME: 12:13 Assessment/Plan Assessment/Plan Hospital Course Paroxysmal atrial flutter: CHADSVASC is difficult to calculate as she does not have CHF but with her hypertrophic cardiomyopathy may be at higher risk so she then gets one point for that and one for female so CHADSVASC is now 2 and she was started on Eliquis. 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 In the meantime, rate control is appropriate and rates are now controlled. Hypertrophic cardiomyopathy: Asymmetric severe septal hypertrophy up to 2.0 cm. No obstruction. Pt needs outpt cardiology f/u. Also counseled to have her children obtain echos as well. She understands -ok for d/c home from my perspective -diltiazem 240 mg CD -Eliquis 5mg BID -social work eval for insurance establishment -outpt cardiology f/u Result Diagram: 04/28/18 0508 04/28/18 0508 Results 24hrs Laboratory Tests Test 04/28/18 05:08 White Blood Count 6.4 Red Blood Count 4.72 Hemoglobin 14.1 Hematocrit 41.8 Mean Corpuscular Volume 88.6 Mean Corpuscular Hemoglobin 29.9 Mean Corpuscular Hemoglobin Concent 33.7 Red Cell Distribution Width 12.9 Platelet Count 256 Mean Platelet Volume 11.0 H Immature Granulocytes % 0.200 Neutrophils % 60.6 Lymphocytes % 26.4 Monocytes % 10.9 Eosinophils % 1.1 Basophils % 0.8 Nucleated Red Blood Cells % 0.0 Immature Granulocytes # 0.010 Neutrophils # 3.9 Lymphocytes # 1.7 Monocytes # 0.7 Eosinophils # 0.1 Basophils # 0.1 Nucleated Red Blood Cells # 0.0 Sodium Level 140 Potassium Level 3.9 Chloride Level 103 Carbon Dioxide Level 28 Anion Gap 9 Blood Urea Nitrogen 21 H Creatinine 0.82 Glucose Level 101 Calcium Level 9.9 Phosphorus Level 4.6 Magnesium Level 2.1 Albumin 4.4 Consultation Date/Type/Reason Admit Date/Time Apr 26, 2018 at 15:22 Initial Consult Date 04/26/18 Type of Consult Cardiology Requesting Provider: YOVANNY LUJAN MD 24 HR Interval Summary Free Text/Dictation HR controlled. No chest pain or SOB. No palpitations. Exam/Review of Systems Vital Signs Vitals Vital Signs Date Temp Pulse Resp B/P (MAP) Pulse Ox O2 O2 Flow FiO2 Time Delivery Rate 04/28/18 98.1 71 20 129/76 96 Room Air 11:02 (93) Intake and Output 04/27/18 04/27/18 04/28/18 1515:00 23:00 07:00 IntakeIntake Total 920 ml 400 ml BalanceBalance 920 ml 400 ml Exam Constitutional: alert, oriented Psych: no complaints, nl mood/affect Head: normocephalic, atraumatic Neck: supple; No jvd Respiratory: clear to auscultation; No crackles/rales Cardiovascular: No regular rate and rhythm, No edema, No systolic murmur Gastrointestinal: soft, non-tender; No distended Neurological: nl mental status, nl speech Medications Medications Current Medications IV Flush (NS 3 ml) 3 ml PER PROTOCOL IV ; Start 04/26/18 at 15:30 Ondansetron HCl (Zofran Inj) 4 mg Q6H PRN IV NAUSEA AND/OR VOMITING; Start 04/26/18 at 15:30 Nitroglycerin (Nitroglycerin (Sl Tab) 0.4 Mg) 1 tab Q5M PRN SL CHEST PAIN; Start 04/26/18 at 15:30 Acetaminophen (Tylenol Tab) 650 mg Q6H PRN PO PAIN LEVEL 1-3 OR FEVER Last administered on 04/26/18at 23:30; Admin Dose 650 MG; Start 04/26/18 at 15:30 Acetaminophen/ Hydrocodone Bitart ([place] (5/325)) 1 tab Q6H PRN PO PAIN LEVEL 4-6; Start 04/26/18 at 15:30 Docusate Sodium (Colace) 100 mg Q12H PRN PO CONSTIPATION; Start 04/26/18 at 15:30 Magnesium Hydroxide (Milk Of Mag) 30 ml DAILY PRN PO CONSTIPATION; Start 04/26/18 at 15:30 Pantoprazole (Protonix Tab) 40 mg DAILY@06 PO Last administered on 04/28/18at 05:48; Admin Dose 40 MG; Start 04/27/18 at 06:00 Metoprolol Tartrate (Lopressor) 2.5 mg Q6 PRN IV ELEVATED BLOOD PRESSURE; Start 04/26/18 at 21:00 Atorvastatin Calcium (Lipitor) 40 mg HS PO Last administered on 04/27/18at 21:36; Admin Dose 40 MG; Start 04/27/18 at 21:00 Diltiazem HCl (Cardizem Cd) 240 mg DAILY PO Last administered on 04/28/18 09 :10; Admin Dose 240 MG; Start 04/27/18 at 09:00 Apixaban (Eliquis) 5 mg BID PO Last administered on 04/28/18 09:10; Admin Dose 5 MG; Start 04/27/18 at 15:00 KIRA ANGEL Apr 28, 2018 12:16
--- NOTE | 2018-04-28 18:40 | PN ---
Date/Time of Note Date/Time of Note DATE: 04/28/18 TIME: 18:40 Objective Vitals Vital Signs Date Temp Pulse Resp B/P (MAP) Pulse Ox O2 O2 Flow FiO2 Time Delivery Rate 04/28/18 67 16:41 04/28/18 97.9 20 103/56 97 Room Air 15:09 (72) Intake and Output 04/27/18 04/27/18 04/28/18 1515:00 23:00 07:00 IntakeIntake Total 920 ml 400 ml BalanceBalance 920 ml 400 ml Results Result Diagram: 04/28/18 0508 04/28/18 0508 Medications Medications Current Medications IV Flush (NS 3 ml) 3 ml PER PROTOCOL IV ; Start 04/26/18 at 15:30 Ondansetron HCl (Zofran Inj) 4 mg Q6H PRN IV NAUSEA AND/OR VOMITING; Start 04/26/18 at 15:30 Nitroglycerin (Nitroglycerin (Sl Tab) 0.4 Mg) 1 tab Q5M PRN SL CHEST PAIN; St art 04/26/18 at 15:30 Acetaminophen (Tylenol Tab) 650 mg Q6H PRN PO PAIN LEVEL 1-3 OR FEVER Last adm inistered on 04/26/18at 23:30; Admin Dose 650 MG; Start 04/26/18 at 15:30 Acetaminophen/ Hydrocodone Bitart ([place] (5/325)) 1 tab Q6H PRN PO PAIN LEVEL 4-6; Start 04/26/18 at 15:30 Docusate Sodium (Colace) 100 mg Q12H PRN PO CONSTIPATION; Start 04/26/18 at 15:30 Magnesium Hydroxide (Milk Of Mag) 30 ml DAILY PRN PO CONSTIPATION; Start 04/26/18 at 15:30 Pantoprazole (Protonix Tab) 40 mg DAILY@06 PO Last administered on 04/28/18at 05:48; Admin Dose 40 MG; Start 04/27/18 at 06:00 Metoprolol Tartrate (Lopressor) 2.5 mg Q6 PRN IV ELEVATED BLOOD PRESSURE; Start 04/26/18 at 21:00 Atorvastatin Calcium (Lipitor) 40 mg HS PO Last administered on 04/27/18at 21:36; Admin Dose 40 MG; Start 04/27/18 at 21:00 Diltiazem HCl (Cardizem Cd) 240 mg DAILY PO Last administered on 04/28/18at 09:10; Admin Dose 240 MG; Start 04/27/18 at 09:00 Apixaban (Eliquis) 5 mg BID PO Last administered on 04/28/18at 09:10; Admin Dose 5 MG; Start 04/27/18 at 15:00 VTE Prophylaxis Risk score (from Ns)>0 risk: 2 SCD applied (from Ns): Yes Lines/Catheters IV Catheter Type: Almanza in Place: No Assessment/Plan Hospital Course Subjective Patient feeling well, no palpitations Objective Physical exam General: Patient is laying in bed and answers questions appropriately Mentation: Patient is alert and oriented 4, Head: Normocephalic atraumatic Eyes: EOMI, pupils reactive to light Neck: Supple, nontender, midline Respiratory: Clear to auscultation bilaterally Cardiovascular: regular rate, no obvious murmurs Gastrointestinal: non-tender to palpation, bowel sounds heard. Neurological: Moves all extremities spontaneously Skin: No new skin lesions Assessment/Plan 1. Atrial fibrillation with RVR - Cardiology on board and appreciate recommendations. Started on PO Cardizem 240mg daily and will monitor HR - Started on Eliquis given findings of hypertrophic CM - ECHO results noted - Discussed with patient need for ablation in future once insurance established 2. Hypertrophic CM 3. Hyperlipidemia - lipid panel results reviewed - Patient started on Lipitor and offered dietary counseling 4. Disposition -due to emergency medi-radha status, patient likely unable to afford eliquis, wa rfarin is also an issue due to inability to go to warfarin clinics, will attempt to resolve with CM before DC GOMEZ MCMANUS Apr 28, 2018 18:40
[2018-04-28] MEDS: ATORVASTATIN 40 MG TAB PO SCH (20:42)
[2018-04-29] VITALS (11 sets, daily range): BP systolic 104–129; BP diastolic 56–85; PULSE 56–72; RESP 18–20
[2018-04-29] MEDS: PANTOPRAZOLE (EC) 40 MG TAB PO SCH (06:22)
[2018-04-29] MEDS: APIXABAN 5 MG TABLET PO SCH ×2 (09:07→21:01)
[2018-04-29] MEDS: DILTIAZEM (CD) 240 MG CAP PO SCH (09:07)
--- NOTE | 2018-04-29 14:21 | PN ---
Date/Time of Note Date/Time of Note DATE: 04/29/18 TIME: 14:18 Objective Vitals Vital Signs Date Temp Pulse Resp B/P (MAP) Pulse Ox O2 O2 Flow FiO2 Time Delivery Rate 04/29/18 69 12:53 04/29/18 98.0 18 104/59 96 11:41 (74) 04/29/18 Room Air 05:00 Intake and Output 04/28/18 04/28/18 04/29/18 1515:00 23:00 07:00 IntakeIntake Total 125 ml 1050 ml 400 ml OutputOutput Total 1 ml BalanceBalance 124 ml 1050 ml 400 ml Results Result Diagram: 04/28/18 0508 04/28/18 0508 Medications Medications Current Medications IV Flush (NS 3 ml) 3 ml PER PROTOCOL IV ; Start 04/26/18 at 15:30 Ondansetron HCl (Zofran Inj) 4 mg Q6H PRN IV NAUSEA AND/OR VOMITING; Start 04/26/18 at 15:30 Nitroglycerin (Nitroglycerin (Sl Tab) 0.4 Mg) 1 tab Q5M PRN SL CHEST PAIN; Start 04/26/18 at 15:30 Acetaminophen (Tylenol Tab) 650 mg Q6H PRN PO PAIN LEVEL 1-3 OR FEVER Last administered on 04/26/18at 23:30; Admin Dose 650 MG; Start 04/26/18 at 15:30 Acetaminophen/ Hydrocodone Bitart ([place] (5/325)) 1 tab Q6H PRN PO PAIN LEVEL 4-6; Start 04/26/18 at 15:30 Docusate Sodium (Colace) 100 mg Q12H PRN PO CONSTIPATION; Start 04/26/18 at 15:30 Magnesium Hydroxide (Milk Of Mag) 30 ml DAILY PRN PO CONSTIPATION; Start at 15:30 Pantoprazole (Protonix Tab) 40 mg DAILY@06 PO Last administered on 04/29/18at 06:22; Admin Dose 40 MG; Start 04/27/18 at 06:00 Metoprolol Tartrate (Lopressor) 2.5 mg Q6 PRN IV ELEVATED BLOOD PRESSURE; Start 04/26/18 at 21:00 Atorvastatin Calcium (Lipitor) 40 mg HS PO Last administered on 04/28/18at 20:42; Admin Dose 40 MG; Start 04/27/18 at 21:00 Diltiazem HCl (Cardizem Cd) 240 mg DAILY PO Last administered on 04/29/18at 09:07; Admin Dose 240 MG; Start 04/27/18 at 09:00 Apixaban (Eliquis) 5 mg BID PO Last administered on 04/29/18at 09:07; Admin Dose 5 MG; Start 04/27/18 at 15:00 VTE Prophylaxis Risk score (from Ns)>0 risk: 2 SCD applied (from Ns): Yes Lines/Catheters IV Catheter Type: Almanza in Place: No Assessment/Plan Hospital Course Subjective Patient feeling well, no palpitations, no upper abdominal pain, some suprapubic pain with palpation Objective Physical exam General: Patient is laying in bed and answers questions appropriately Mentation: Patient is alert and oriented 4, Head: Normocephalic atraumatic Eyes: EOMI, pupils reactive to light Neck: Supple, nontender, midline Respiratory: Clear to auscultation bilaterally Cardiovascular: regular rate, no obvious murmurs Gastrointestinal: non-tender to palpation in the upper quadrants, some mild suprapubic pain, bowel sounds heard. Neurological: Moves all extremities spontaneously Skin: No new skin lesions Assessment/Plan suprapubic pain -UA ordered -us did not show anything acute abdominal fullness -spoke with recreation therapy aides teacher, patient only had a sensation of fullness, not pain, only when the palpitations originally happened, not currently, resolved after day 1. -US abdomen showing gallstones, explained to patient this is not an emergency, but she will need to get it removed eventually in the outpatient setting. 1. Atrial fibrillation with RVR - Cardiology on board and appreciate recommendations. Started on PO Cardizem 240mg daily and will monitor HR - Started on Eliquis given findings of hypertrophic CM - ECHO results noted - Discussed with patient need for ablation in future once insurance established 2. Hypertrophic CM 3. Hyperlipidemia - lipid panel results reviewed - Patient started on Lipitor and offered dietary counseling 4. Disposition -due to emergency medi-radha status, patient likely unable to afford eliquis, warfarin is also an issue due to inability to go to warfarin clinics, will attempt to resolve with CM before DC GOMEZ MCMANUS Apr 29, 2018 14:21
--- NOTE | 2018-04-29 16:12 | CONS ---
Date/Time of Note Date/Time of Note DATE: 04/29/18 TIME: 16:10 Assessment/Plan Assessment/Plan Hospital Course Paroxysmal atrial flutter: Back in sinus. senior care plan should be atrial flutter ablation. CHADSVASC is difficult to calculate as she does not have CHF or low EF and her hypertrophic cardiomyopathy probably does not count. With financial considerations, would err on the side of no anticoagulation at this ti me Hypertrophic cardiomyopathy: Asymmetric severe septal hypertrophy up to 2.0 cm. No obstruction. Pt needs outpt cardiology f/u. Also counseled to have her children obtain echos as well. She understands -ok for d/c home from my perspective -diltiazem 240 mg CD -no anticoagulation for now -outpt cardiology f/u Result Diagram: 04/28/18 0508 04/28/18 0508 Consultation Date/Type/Reason Admit Date/Time Apr 28, 2018 at 16:51 Initial Consult Date 04/26/18 Type of Consult Cardiology Requesting Provider: YOVANNY LUJAN MD 24 HR Interval Summary Free Text/Dictation Back in sinus.No complaints. Asking about discharge Exam/Review of Systems Vital Signs Vitals Vital Signs Date Temp Pulse Resp B/P (MAP) Pulse Ox O2 O2 Flow FiO2 Time Delivery Rate 04/29/18 98.3 66 18 129/85 99 15:38 (100) 04/29/18 Room Air 05:00 Intake and Output 04/28/18 04/28/18 04/29/18 1515:00 23:00 07:00 IntakeIntake Total 125 ml 1050 ml 400 ml OutputOutput Total 1 ml BalanceBalance 124 ml 1050 ml 400 ml Exam Constitutional: alert, oriented Psych: no complaints, nl mood/affect Head: normocephalic, atraumatic Neck: supple; No jvd Respiratory: clear to auscultation; No crackles/rales Cardiovascular: regular rate and rhythm, systolic murmur (2/6 KALLI); No edema Gastrointestinal: soft, non-tender Neurological: nl mental status, nl speech Medications Medications Current Medications IV Flush (NS 3 ml) 3 ml PER PROTOCOL IV ; Start 04/26/18 at 15:30 Ondansetron HCl (Zofran Inj) 4 mg Q6H PRN IV NAUSEA AND/OR VOMITING; Start 04/26/18 at 15:30 Nitroglycerin (Nitroglycerin (Sl Tab) 0.4 Mg) 1 tab Q5M PRN SL CHEST PAIN; Start 04/26/18 at 15:30 Acetaminophen (Tylenol Tab) 650 mg Q6H PRN PO PAIN LEVEL 1-3 OR FEVER Last administered on 04/26/18at 23:30; Admin Dose 650 MG; Start 04/26/18 at 15:30 Acetaminophen/ Hydrocodone Bitart ([place] (5/325)) 1 tab Q6H PRN PO PAIN LEVEL 4-6; Start 04/26/18 at 15:30 Docusate Sodium (Colace) 100 mg Q12H PRN PO CONSTIPATION; Start 04/26/18 at 15:30 Magnesium Hydroxide (Milk Of Mag) 30 ml DAILY PRN PO CONSTIPATION; Start 04/26/18 at 15:30 Pantoprazole (Protonix Tab) 40 mg DAILY@06 PO Last administered on 04/29/18at 06:22; Admin Dose 40 MG; Start 04/27/18 at 06:00 Metoprolol Tartrate (Lopressor) 2.5 mg Q6 PRN IV ELEVATED BLOOD PRESSURE; Start 04/26/18 at 21:00 Atorvastatin Calcium (Lipitor) 40 mg HS PO Last administered on 04/28/18at 20:42; Admin Dose 40 MG; Start 04/27/18 at 21:00 Diltiazem HCl (Cardizem Cd) 240 mg DAILY PO Last administered on 04/29/18at 09:07; Admin Dose 240 MG; Start 04/27/18 at 09:00 Apixaban (Eliquis) 5 mg BID PO Last administered on 04/29/18at 09:07; Admin Dose 5 MG; Start 04/27/18 at 15:00 KIRA ANGEL Apr 29, 2018 16:12
[2018-04-29] MEDS: ATORVASTATIN 40 MG TAB PO SCH (21:01)
[2018-04-30] VITALS (9 sets, daily range): BP systolic 104–147; BP diastolic 61–79; PULSE 53–85; RESP 18–20
[2018-04-30] MEDS: PANTOPRAZOLE (EC) 40 MG TAB PO SCH (06:42)
[2018-04-30] MEDS: APIXABAN 5 MG TABLET PO SCH (08:10)
--- NOTE | 2018-04-30 09:44 | CONS ---
Date/Time of Note Date/Time of Note DATE: 04/30/18 TIME: 09:43 Assessment/Plan Assessment/Plan Hospital Course Paroxysmal atrial flutter: Back in sinus. penitentiary plan should be atrial flutter ablation. CHADSVASC is difficult to calculate as she does not have CHF or low EF and her hypertrophic cardiomyopathy probably does not count. With financial considerations, would err on the side of no anticoagulation at this ti ar Hypertrophic cardiomyopathy: Asymmetric severe septal hypertrophy up to 2.0 cm. No obstruction. Pt needs outpt cardiology f/u. Also counseled to have her children obtain echos as well. She understands -ok for d/c home from my perspective -diltiazem 240 mg CD -no anticoagulation for now -outpt cardiology f/u Result Diagram: 04/28/18 0508 04/28/18 0508 Consultation Date/Type/Reason Admit Date/Time Apr 28, 2018 at 16:51 Initial Consult Date 04/26/18 Type of Consult Cardiology Requesting Provider: YOVANNY LUJAN MD 24 HR Interval Summary Free Text/Dictation Remains in sinus. No complaints Exam/Review of Systems Vital Signs Vitals Vital Signs Date Temp Pulse Resp B/P (MAP) Pulse Ox O2 O2 Flow FiO2 Time Delivery Rate 04/30/18 98.8 58 18 104/62 94 Room Air 07:45 (76) Intake and Output 04/29/18 04/29/18 04/30/18 1515:00 23:00 07:00 IntakeIntake Total 900 ml 500 ml BalanceBalance 900 ml 500 ml Exam Constitutional: alert, oriented Psych: no complaints, nl mood/affect Head: normocephalic, atraumatic Neck: supple; No jvd Respiratory: clear to auscultation; No crackles/rales Cardiovascular: regular rate and rhythm, systolic murmur (2/6 KALLI); No edema Gastrointestinal: soft, non-tender Neurological: nl mental status, nl speech Medications Medications Current Medications IV Flush (NS 3 ml) 3 ml PER PROTOCOL IV ; Start 04/26/18 at 15:30 Ondansetron HCl (Zofran Inj) 4 mg Q6H PRN IV NAUSEA AND/OR VOMITING; Start 04/26/18 at 15:30 Nitroglycerin (Nitroglycerin (Sl Tab) 0.4 Mg) 1 tab Q5M PRN SL CHEST PAIN; Start 04/26/18 at 15:30 Acetaminophen (Tylenol Tab) 650 mg Q6H PRN PO PAIN LEVEL 1-3 OR FEVER Last administered on 04/26/18at 23:30; Admin Dose 650 MG; Start 04/26/18 at 15:30 Acetaminophen/ Hydrocodone Bitart ([place] (5/325)) 1 tab Q6H PRN PO PAIN LEVEL 4-6; Start 04/26/18 at 15:30 Docusate Sodium (Colace) 100 mg Q12H PRN PO CONSTIPATION; Start 04/26/18 at 15:30 Magnesium Hydroxide (Milk Of Mag) 30 ml DAILY PRN PO CONSTIPATION; Start 04/26/18 at 15:30 Pantoprazole (Protonix Tab) 40 mg DAILY@06 PO Last administered on 04/30/18at 06:42; Admin Dose 40 MG; Start 04/27/18 at 06:00 Metoprolol Tartrate (Lopressor) 2.5 mg Q6 PRN IV ELEVATED BLOOD PRESSURE; Start 04/26/18 at 21:00 Atorvastatin Calcium (Lipitor) 40 mg HS PO Last administered on 04/29/18at 21:01; Admin Dose 40 MG; Start 04/27/18 at 21:00 Diltiazem HCl (Cardizem Cd) 240 mg DAILY PO Last administered on 04/29/18at 09:07; Admin Dose 240 MG; Start 04/27/18 at 09:00 Apixaban (Eliquis) 5 mg BID PO Last administered on 04/30/18at 08:10; Admin Dose 5 MG; Start 04/27/18 at 15:00 KIRA ANGEL Apr 30, 2018 09:44
[2018-04-30] MEDS ORDERED: ATOR40TA68 PO (10:53)
[2018-04-30] MEDS ORDERED: DILT180C94 PO (10:53)
[2018-04-30] MEDS ORDERED: OMEP20CA16 PO (10:53)
[2018-04-30] MEDS ORDERED: ASPI-817 PO (10:53)
--- NOTE | 2018-04-30 10:55 | PDOCDIS ---
Discharge Instructions CONDITION [id number] Patient Condition: [id number] Stable FOLLOW UP/APPOINTMENTS Follow-up Plan 1. Please continue all medications prescribed 2. Please follow-up with a primary care provider as soon as possible for continued care for your atrial fibrillation, acid reflux, as well as high cholesterol. GOMEZ MCMANUS Apr 30, 2018 10:55
--- NOTE | 2018-04-30 11:06 | DS ---
Date/Time of Note Date/Time of Note DATE: 04/30/18 TIME: 11:05 Discharge Summary Admission/Discharge Info Admit Date/Time Apr 28, 2018 at 16:51 Discharge Date/Time Patient Condition: Stable Hospital Course Patient is a female with no significant past medical history before due to having no insurance who presents to [facility] for palpitat ions. Patient was seen by cardiology and it was diagnosed with atrial fibrillation with RVR and given appropriate medication. Patient on echocardiogram also had evidence of hypertrophic cardiomyopathy and extensive counseling was given to patient by both myself and cardiology stating that there is no obstruction at this time however she will need close monitoring by a service agent in the outpatient setting and also it was recommended that her children get an echocardiogram to assess for hypertrophic cardiomyopathy. Patient felt well and was assessed for need of Eliquis, however eventually cardiology felt that the patient did not need anticoagulation given her chads vas findings and subsequently stated that she did not need anticoagulation. Patient will be discharged on a slightly lower dose of her Cardizem as her blood pressure is borderline and her heart rate is also near bradycardia. Patient is completely asymptomatic at this time however. Patient will be discharged also be discharged with omeprazole for her acid reflux which has resolved as well as a cholesterol medication. Extensive counseling and information was given to shubham lee regarding free clinics and how to proceed with obtaining [facility] given her uninsured status. Discharge diagnosis A. fib with RVR, controlled Hypertrophic cardiomyopathy, stable Dyslipidemia Suprapubic pain, resolved, UA negative Abdominal fullness, resolved, possible GERD related GERD Home Meds Active Scripts Aspirin* (Aspirin* EC) 81 Mg Tablet.dr, 81 MG PO DAILY, #30 TAB 2 Refills Prov:GOMEZ MCMANUS 04/30/18 Diltiazem Hcl* (Diltiazem XT) 180 Mg Capsule.er, 180 MG PO DAILY, #30 CAP 2 Refills Prov:GOMEZ MCMANUS 04/30/18 Omeprazole* (Omeprazole*) 20 Mg Capsule.dr, 20 MG PO DAILY, #30 CAP 2 Refills Prov:GOMEZ MCMANUS 04/30/18 Atorvastatin* (Atorvastatin*) 40 Mg Tablet, 40 MG PO HS for 30 Days, #30 TAB 2 Refills Prov:GOMEZ MCMANUS 04/30/18 Follow-up Plan 1. Please continue all medications prescribed 2. Please follow-up with a primary care provider as soon as possible for continued care for your atrial fibrillation, acid reflux, as well as high cholesterol. #3 please follow-up with a service agent as soon as possible in order to continue to monitor your hypertrophic cardiomyopathy, which may lead to sudden if unmonitored. Primary Care Provider Care Physician No Primary Time spent on discharge: > 30 minutes GOMEZ MCMANUS Apr 30, 2018 11:06
[2018-04-30] MEDS ORDERED: DILTIAZEM (CD) 180 MG CAP PO SCH (15:30)
[2018-05-01] MEDS ORDERED: DILTIAZEM (CD) 240 MG CAP PO SCH (09:00)
[2018-05-01] MEDS ORDERED: DILTIAZEM (CD) 180 MG CAP PO SCH (09:00)
== END 2018-04-30 15:56 | disposition home or self-care (01) | DRG 310 ==
LOC: E/R 11:03 → 6WM 15:22 → OBSVTOIN 04-28 16:51
PROVIDERS: ADMIT Internal Medicine; ATTEND Internal Medicine
DX: I48.91 Unspecified atrial fibrillation (principal); I42.2 Other hypertrophic cardiomyopathy; E78.5 Hyperlipidemia, unspecified; K80.20 Calculus of gallbladder without cholecystitis without obstruction; K21.9 Gastro-esophageal reflux disease without esophagitis; R10.30 Lower abdominal pain, unspecified
CPT/HCPCS: 36415; 71045; 76700; 80048; 80053; 80061; 80069; 81001; 83036; 83690; 83735; 84443; 84484; 85025; 85610; 85730; 90686; 93005; 93306; 96374; G0378; J1650; J7030